=== PATIENT | male | born 1985 | race Caucasian/White ===

== ENCOUNTER 2020-01-02 08:42 | Outpatient (CLI) | payer OTHER, SELFPAY ==
[2020-01-02 09:27] LABS: Post Vasectomy Sperm Presence None Seen (None Seen)
== END 2020-01-02 08:43 | disposition home or self-care (01) ==
LOC: CHSLAB 08:48
PROVIDERS: PCP Internal Medicine; Visit Provider Internal Medicine
DX: Z31.42 Aftercare following sterilization reversal (principal)
CPT/HCPCS: 88160

== ENCOUNTER 2020-07-23 09:50 | Outpatient (CLI) | payer OTHER, SELFPAY ==
[2020-07-23 21:13] LABS: SARS-CoV-2 RNA PCR Negative
== END 2020-07-23 09:51 | disposition home or self-care (01) ==
LOC: CHSLAB 09:53
PROVIDERS: PCP Internal Medicine; Visit Provider Internal Medicine
DX: Z20.828 Contact with and (suspected) exposure to other viral communicable diseases (principal)
CPT/HCPCS: 87635; C9803; U0003

== ENCOUNTER 2020-11-29 10:56 | Outpatient (CLI) | payer OTHER, SELFPAY ==
[2020-11-29 11:49] LABS: SARS-CoV-2 Ag Negative (Negative)
[2020-11-30 18:11] LABS: SARS-CoV-2 RNA PCR Negative
== END 2020-11-29 10:57 | disposition home or self-care (01) ==
PROVIDERS: PCP Internal Medicine; Visit Provider Internal Medicine
DX: R68.83 Chills (without fever) (principal); R53.83 Other fatigue; Z20.822 Contact with and (suspected) exposure to COVID-19
CPT/HCPCS: 87426; C9803; U0003; U0005

== ENCOUNTER 2021-11-01 09:10 | Outpatient (CLI) | payer OTHER, SELFPAY ==
[2021-11-01 10:25] LABS: Influenza Control Valid (Valid)
[2021-11-01 10:26] LABS: SARS-CoV-2 Ag Positive (Negative)
== END 2021-11-01 09:11 | disposition home or self-care (01) ==
LOC: CHSLAB 09:12
PROVIDERS: PCP Internal Medicine; Visit Provider Internal Medicine
DX: U07.1 COVID-19 (principal); J06.9 Acute upper respiratory infection, unspecified
CPT/HCPCS: 87081; 87426; 87804; 87880; C9803

== ENCOUNTER 2022-07-04 10:25 | Outpatient (CLI) | payer OTHER, SELFPAY ==
--- NOTE | ~2022-07-04 | US_ITS ---
EXAMINATION: US scrotum doppler DATE: 07/04/2022 11:27 INDICATION: Left testicular pain. Palpable mass. TECHNIQUE: Testicular sonogram utilizing grayscale and Doppler COMPARISON: None. FINDINGS: The right testis measures 4.4 x 3.6 x 2.2 cm. The left testis measures 4.3 x 3.5 x 2.5 cm. Symmetric normal grayscale appearance to both testes. There is normal vascular flow to both testes. The right e pididymis is normal with normal vascular flow. The left epididymis is normal with normal vascular lucho w. There are no dilatation of the aerial installer the palpable mass . Colocalized to the left epididymal tail which appears unremarkable. There is no varicocele or hydrocele. IMPRESSION: 1. Normal scrotal ultrasound. Palpable abnormality appears to correspond to a normal appearing left epididymal tail. Reviewed, dictated and finalized at location A.
== END 2022-07-04 10:26 | disposition home or self-care (01) ==
LOC: CHSIMG 10:30
PROVIDERS: PCP Internal Medicine; Visit Provider Nurse Practitioner Family
DX: N50.812 Left testicular pain (principal)
CPT/HCPCS: 76870; 93976

== ENCOUNTER 2024-06-14 09:10 | Outpatient (CLI) | payer OTHER, SELFPAY ==
--- NOTE | ~2024-06-14 | XR_ITS ---
EXAMINATION: XR foot LT min 3V DATE: 06/14/2024 09:38 INDICATION: Left heel pain. TECHNIQUE: 4 views of left foot were obtained. COMPARISON: None. FINDINGS: Bone alignment is normal. No fracture. 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 There is an enthesophyte at plantar aspect of calcaneal tuberosity. IMPRESSION: 1. No fracture. Reviewed, dictated and finalized at location A. IMPRESSION: 1. No fracture.
--- NOTE | ~2024-06-14 | XR_ITS ---
EXAMINATION: XR ankle LT min 3V DATE: 06/14/2024 09:38 INDICATION: Left heel pain. TECHNIQUE: 4 views of left ankle were obtained. COMPARISON: None. FINDINGS: Bone alignment is normal. No fracture. There is mild osteoarthritis of talonavicular joint. There is an enthesophyte at plantar aspect of calcaneal tuberosity. IMPRESSION: 1. No fracture. Reviewed, dictated and finalized at location A. IMPRESSION: 1. No fracture.
== END 2024-06-14 09:11 | disposition home or self-care (01) ==
PROVIDERS: PCP Internal Medicine; Visit Provider Nurse Practitioner Family
DX: S99.922A Unspecified injury of left foot, initial encounter (principal)
CPT/HCPCS: 73610; 73630

== ENCOUNTER 2025-07-06 11:32 | Outpatient (CLI) | payer OTHER, SELFPAY ==
--- NOTE | ~2025-07-06 | XR_ITS ---
EXAMINATION: XR hand LT min 3V, 07/06/2025 11:38 CDT HISTORY: LEFT HAND INJURY AROUND 4TH DIGIT COMPARISON: No comparisons available. Findings: Arising from the distal aspect of the intermediate phalanx fourth digit there is a small probable osteochondroma measuring 5 x 6 mm, correlate for pain in this area, dedicated CT suggested as clinically warranted. No significant degenerative changes. Soft tissues unremarkable. Impression: Please see above Reviewed, dictated and finalized at location A. Impression: Please see above
--- OUTSIDE RECORDS SUMMARY | 2025-07-06 13:47 | XMS_ITS | Patient Health Record ---
Author Organization [facility] [employer] [facility] Address [address] [place] [address] [address] [facility] [address] [place] [address] Care Team Providers Care Telephone Sales Agent Name Role Phone Danny Watters Unavailable [phone] Reason For Referral No Information Social History Social History Additional Details Category Social Info Options Details Migrated Social History Migrated Social History Alcohol Intake: Occasional 08/28/2020,Tobacco Years: Current every day smoker 08/28/2020,Smoking Status: 6 08/28/2020 Plan Of Treatment No Information Insurance Providers Payer Name Payer Address Payer Phone Subscriber Number Group Number Insured Name Patient Relationship to Insured Coverage Start Date Coverage End Date [employer] [address] [place] [phone] [id number] [id number] TRAN Self - patient is the insured
== END 2025-07-06 11:33 | disposition home or self-care (01) ==
PROVIDERS: PCP Internal Medicine; Visit Provider Nurse Practitioner Family
DX: S69.92XA Unspecified injury of left wrist, hand and finger(s), initial encounter (principal); M89.9 Disorder of bone, unspecified
CPT/HCPCS: 73130